=== PATIENT | female | born 1990 | race Caucasian/White ===

== ENCOUNTER 2019-05-08 19:03 | Emergency (ER) | payer MEDICAID, OTHER ==
[2019-05-08] MEDS ORDERED: DIPH/PERTUSS(ACELL)/TETANUS VAC/PF 0.5 ML SYR (>=10YO) IM ONE (19:10)
--- NOTE | 2019-05-08 19:10 | ER Document Report ---
ED Medical Screen (RME) - General Chief Complaint: Hand Injury Stated Complaint: HAND LACERATION Time Seen by Provider: 05/08/19 19:09 Primary Care Provider: ZAN OROURKE MD [Primary Care Provider] - Follow up as needed TRAVEL OUTSIDE OF THE [place] IN LAST 30 DAYS: No - HPI Notes: 05/08/19 19:38 28-year-old female to the emergency department with complaints of bilateral palm lacerations that occurred just prior to arrival. 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 She states that the glasses woke and cut her. She is unsure of her tetanus status. Form to brief medical screening exam on the patient and determined that she will need further care from Main side provider for laceration repair. We have placed initial orders to aid in her expedited care. - Related Data Allergies/Adverse Reactions: No Known Allergies Allergy (Unverified 04/09/14 16:27) Past Medical History - Immunizations Hx Diphtheria, Pertussis, Tetanus Vaccination: Yes Physical Exam - Vital signs Vitals: Temp Pulse Resp BP Pulse Ox 98.7 F 70 18 124/78 97 05/08/19 19:20 05/08/19 19:20 05/08/19 19:20 05/08/19 19:20 05/08/19 19:20 Course - Vital Signs Vital signs: Temp Pulse Resp BP Pulse Ox 98.7 F 70 18 124/78 97 05/08/19 19:20 05/08/19 19:20 05/08/19 19:20 05/08/19 19:20 05/08/19 19:20 Doctor's Discharge - Discharge Referrals: ZAN OROURKE MD [Primary Care Provider] - Follow up as needed
--- NOTE | 2019-05-08 20:07 | RADIOLOGY REPORT (SQ) ---
EXAM DESCRIPTION: HAND BILATERAL 3 VIEWS COMPLETED DATE/TIME: 05/08/2019 7:47 pm REASON FOR STUDY: hand lacs COMPARISON: None. EXAM PARAMETERS: NUMBER OF VIEWS: Six views. TECHNIQUE: AP, lateral and oblique radiographic images acquired of the right and left hand. LIMITATIONS: None. FINDINGS: MINERALIZATION: Normal. BONES: No acute fracture or dislocation. No worrisome bone lesions. JOINTS: No effusion. SOFT TISSUES: Mild soft tissue swelling. Possible 5 mm radiopaque foreign body in the right proximal interspace of the 1st and 2nd metacarpal seen best on the oblique projection. There is also a 2 mm radiopaque foreign body which may be in the skin surface of the radial aspect of the distal left 3rd digit. . OTHER: No other significant finding. IMPRESSION: NO FRACTURE. Possible 5 mm radiopaque foreign body in the right proximal interspace of t he 1st and 2nd metacarpal seen best on the oblique projection. There is also a 2 mm radiopaque forei gn body which may be in the skin surface of the radial aspect of the distal left 3rd digit. TECHNICAL DOCUMENTATION: JOB ID: [id number] [place]-72 2010 [employer]- All Rights Reserved Reading location - IP/workstation name: [email or web address]
[2019-05-08] MEDS ORDERED: LIDOCAINE 1% INJ-PF (10 MG/ML) 30 ML SDV IM ONE (20:47)
[2019-05-08] MEDS ORDERED: LORAZEPAM INJ 2 MG/1 ML VIAL IM ONE (20:54)
--- NOTE | 2019-05-08 21:49 | ER Document Report ---
ED General - General Chief Complaint: Laceration Stated Complaint: HAND LACERATION Time Seen by Provider: 05/08/19 19:09 Primary Care Provider: ZAN OROURKE MD [ACTIVE STAFF] - Follow up as needed TRAVEL OUTSIDE OF THE [place] IN LAST 30 DAYS: No - HPI Patient complains to provider of: hand injury Notes: 28 y/o previously healthy patient presenting to ED for evaluation of bilateral hand lacerations she was at work when she tripped and had two glasses break and lacerate her hands her last tdap is unknown she is able to feel and move all digits normally bleeding has stopped with pressure no other injuries to report - Related Data Allergies/Adverse Reactions: No Known Allergies Allergy (Unverified 04/09/14 16:27) Past Medical History - Social History Smoking Status: Current Every Day Smoker Chew tobacco use (# tins/day): No Frequency of alcohol use: Occasional Drug Abuse: None Family History: Reviewed & Not Pertinent Patient has suicidal ideation: No Patient has homicidal ideation: No - Immunizations Hx Diphtheria, Pertussis, Tetanus Vaccination: Yes Review of Systems - Review of Systems Constitutional: No symptoms reported EENT: No symptoms reported Cardiovascular: No symptoms reported Respiratory: No symptoms reported Gastrointestinal: No symptoms reported Genitourinary: No symptoms reported Female Genitourinary: No symptoms reported Musculoskeletal: No symptoms reported Skin: See HPI Hematologic/Lymphatic: No symptoms reported Neurological/Psychological: No symptoms reported Physical Exam - Vital signs Vitals: Temp Pulse Resp BP Pulse Ox 98.7 F 70 18 124/78 97 05/08/19 19:20 05/08/19 19:20 05/08/19 19:20 05/08/19 19:20 05/08/19 19:20 Interpretation: Normal - General General appearance: Appears well, Alert - HEENT Head: Normocephalic, Atraumatic Eyes: Normal Pupils: PERRL - Respiratory Respiratory status: No respiratory distress Chest status: Nontender Breath sounds: Normal Chest palpation: Normal - Cardiovascular Rhythm: Regular Heart sounds: Normal auscultation Murmur: No - Abdominal Inspection: Normal Distension: No distension Bowel sounds: Normal Tenderness: Nontender Organomegaly: No organomegaly - Back Back: Normal, Nontender - Extremities General upper extremity: Normal inspection, Nontender, Normal color, Normal ROM, Normal temperature General lower extremity: Normal inspection, Nontender, Normal color, Normal ROM, Normal temperature, Normal weight bearing. No: Katerina's sign - Neurological Neuro grossly intact: Yes Cognition: Normal Orientation: AAOx4 [place] Coma Scale Eye Opening: Spontaneous [place] Coma Scale Verbal: Oriented [place] Coma Scale Motor: Obeys Commands [place] Coma Scale Total: 15 Speech: Normal Motor strength normal: LUE, RUE, LLE, RLE Sensory: Normal - Psychological Associated symptoms: Normal affect, Normal mood - Skin Skin Temperature: Warm Skin Moisture: Dry Skin Color: Normal Notes: bilateral hands with lacerations. right has 2 linear aspects over palm. left has a large laceration to proximal hand into wrist. normal pulses, sensation, stre ngth Course - Re-evaluation Re-evalutation: 05/08/19 21:46 xr's w/ no fracture but possible small FB's wounds were copiously irrigated and no FB's appreciated on exam wounds repaired w/ stitches and hand specialist follow up recommended - Vital Signs Vital signs: Temp Pulse Resp BP Pulse Ox 98.7 F 70 18 124/78 97 05/08/19 19:20 05/08/19 19:20 05/08/19 19:20 05/08/19 19:20 05/08/19 19:20 - Diagnostic Test Radiology reviewed: Image reviewed, Reports reviewed Procedures - Laceration/Wound Repair Right Volar Hand Wound length (cm): 4 Wound's Depth, Shape: Irregular Anesthetic type: 1% Lidocaine Wound explored: No foreign body removed - definitively Irrigated w/ Saline (mLs): 250 Wound Repaired With: Sutures Suture Size/Type: 4:0, Prolene Number of Sutures: 4 Layer Closure?: No Post-procedure wound care: Sterile dressing applied Post-procedure NV exam normal: Yes Complications: No Left Volar Hand Wound length (cm): 6 Wound's Depth, Shape: Superficial, Irregular Anesthetic type: 1% Lidocaine Wound explored: No foreign body removed - no definitive Wound Repaired With: Sutures Suture Size/Type: 4:0, Prolene Number of Sutures: 7 Layer Closure?: No Post-procedure wound care: Sterile dressing applied Post-procedure NV exam normal: Yes Complications: No Discharge - Discharge Clinical Impression: Hand laceration Qualifiers: Encounter type: initial encounter Foreign body presence: with foreign body Laterality: unspecified laterality Qualified Code(s): S61.429A - Laceration with foreign body of unspecified hand, initial encounter Condition: Stable Disposition: HOME, SELF-CARE Instructions: Antibiotic Ointment Protection ([facility]), Oral Narcotic Medication ([facility]), Prophylactic Antibiotic ([facility]), Tetanus Immunization Given ([facility]) Additional Instructions: follow up with hand specialist for wound check and to be sure you heal appropriately return to the ED with worsening Prescriptions: Hydrocodone/Acetaminophen [[place] 5-325 mg Tablet] 1 tab PO Q6HP PRN #10 tablet PRN Reason: Cephalexin Monohydrate [Keflex 500 mg Capsule] 500 mg PO QID #20 capsule Referrals: ZAN OROURKE MD [ACTIVE STAFF] - Follow up as needed KAILASH CASE DO [ACTIVE STAFF] - Follow up as needed
[2019-05-08 22:16] VITALS: BP 117/73
== END 2019-05-08 22:20 | disposition home or self-care (01) ==
LOC: ER 19:03
DX: S61.412A Laceration without foreign body of left hand, initial encounter (principal); S61.411A Laceration without foreign body of right hand, initial encounter; W25.XXXA Contact with sharp glass, initial encounter; Y99.0 Civilian activity done for income or pay; F17.200 Nicotine dependence, unspecified, uncomplicated; Z23 Encounter for immunization
CPT/HCPCS: 73130; 90715; 12004; J3490; J2060; 90471; 96374; 99283